=== PATIENT | male | born 1945 | race Caucasian/White ===

== ENCOUNTER 2018-09-05 06:42 | Day surgery (SDC) | payer MEDICARE, SELFPAY ==
[2018-09-05] MEDS: PROPARACAINE 0.5% OPHTH SOL 2 DROPS EYE-OP (10:50)
[2018-09-05 10:54] VITALS: BP 156/79; PULSE 57; RESP 16; TEMP 36.4; O2SAT 100
[2018-09-05] MEDS: CATARACT EYE COMPOUND (10 DROPS/SYRINGE) 3 DROPS EYE-OP (10:56)
[2018-09-05 10:57] VITALS: BMI 35.8
--- NOTE | 2018-09-05 12:29 | PM.PREOP ---
Pre-operative Note Interval Note History & Physical reviewed/Exam performed by Physician: No Changes to H&P: No
--- NOTE | 2018-09-05 12:29 | PM.OP.1 ---
Operative Date/Time/Diagnoses Pre-op diagnosis: Nuclear Cataract Left eye Post-op diagnosis: same Procedure & Clinicians Surgeon: Demian Fowler Anesthesia Type: MAC +/- and Sedation Operative Notes Procedure in detail: Patient brought to the operating suite. Tetracaine drops placed in the left eye. Patient was prepped and draped in sterile manner. Wire lid speculum was placed in the eye. Betadine drops were placed on the eye. This was irrigated. Lidocaine jelly was placed on the eye. A paracentesis port was created with a side-port blade. 0.1 mL 1% preservative free lidocaine was injected into the anterior chamber. The anterior chamber was deepened with viscoelastic. 2.6 mm keratome was used to create a temporal clear corneal incision. Cystotome and Utrata forceps were used to create continuous tear capsulorrhexis. Balanced salt solution was used to hydro dissect the nucleus. The phacoemulsification handpiece was inserted and the nucleus was removed using the stop and chop technique. The irrigation aspiration handpiece was inserted and the remaining cortex was removed. Anterior chamber was deepened with viscoelastic. An Elliott ZCB00 intraocular lens with a power of 25.5 was injected into the capsular bag. Irrigation aspiration handpiece was inserted and the remaining viscoelastic was removed. Incision was hydrated with balanced salt solution and found to be leak free with pressure with Weck-Jasmina sponges. 0.1 mL Vigamox injected anterior chamber. 0.3 mL Kenalog 10 mg was injected subconjunctivally. Lid speculum was removed. The patient left the operating room in excellent condition. Complications: none Condition: stable Disposition: same day surgery
[2018-09-05] MEDS: PHENYLEPHRINE/LIDOCAINE VIAL (OR) 0.2 ML EYE-OP (12:42)
[2018-09-05] MEDS: TRIAMCINOLONE 50 MG/5 ML VIAL INJ (12:43)
[2018-09-05] MEDS: MOXIFLOXACIN OPHTH DROPS 3 ML BOTTLE 2 DROPS INJ (12:43)
[2018-09-05] MEDS: TETRACAINE 0.5% OPHTH DROPS 4 ML 2 DROPS EYE-OP (12:44)
[2018-09-05] MEDS: LIDOCAINE JELLY 2% 5 ML 1 APPLIC TOP (12:44)
[2018-09-05] MEDS: BALANCED SALT IRRIG SOLN NO.2 500 ML, EPINEPHrine 1 MG IRR (12:44)
[2018-09-05] MEDS: CHONDROIDTIN/SOD HYALURONATE 1.05 ML SYRINGE INTRAOCULA (12:44)
[2018-09-05 12:55] VITALS: BP 137/69; PULSE 52; RESP 16; TEMP 36.3; O2SAT 99
== END 2018-09-05 13:10 | disposition home or self-care (01) ==
LOC: OR 06:45
PROVIDERS: Family Provider Internal Medicine; PCP Internal Medicine; Visit Provider Ophthalmology
DX: H25.12 Age-related nuclear cataract, left eye (principal); I48.91 Unspecified atrial fibrillation; I10 Essential (primary) hypertension
CPT/HCPCS: J0171; J2250; J3010; J3301

== ENCOUNTER 2018-09-19 09:15 | Day surgery (SDC) | payer MEDICARE, SELFPAY ==
[2018-09-19 09:39] VITALS: BP 141/71; PULSE 47; RESP 16; TEMP 36.5; O2SAT 100; BMI 35.9
[2018-09-19] MEDS: PROPARACAINE 0.5% OPHTH SOL 2 DROPS EYE-OP (09:50)
[2018-09-19] MEDS: CATARACT EYE COMPOUND (10 DROPS/SYRINGE) 3 DROPS EYE-OP (09:56)
--- NOTE | 2018-09-19 10:36 | PM.PREOP ---
Pre-operative Note Interval Note History & Physical reviewed/Exam performed by Physician: No Changes to H&P: No
--- NOTE | 2018-09-19 10:36 | PM.OP.1 ---
Operative Date/Time/Diagnoses Pre-op diagnosis: Nuclear cataract right eye Procedure & Clinicians Procedure: Cataract Surgery Same procedure as scheduled: Yes Surgeon: Demian Fowler Anesthesia Type: MAC +/- and Sedation Operative Notes Procedure in detail: Patient brought to the operating suite. Tetracaine drops placed in the right eye. Patient was prepped and draped in sterile manner. Wire lid speculum was placed in the eye. Betadine drops were placed on the eye. This was irrigated. Lidocaine jelly was placed on the eye. A paracentesis port was created with a side-port blade. 0.1 mL 1% preservative free lidocaine was injected into the anterior chamber. The anterior chamber was deepened with viscoelastic. 2.6 mm keratome was used to create a temporal clear corneal incision. Cystotome and Utrata forceps were used to create continuous tear capsulorrhexis. Balanced salt solution was used to hydro dissect the nucleus. The phacoemulsification handpiece was inserted and the nucleus was removed using the stop and chop technique. The irrigation aspiration handpiece was inserted and the remaining cortex was removed. Anterior chamber was deepened with viscoelastic. An Elliott ZCB00 intraocular lens with a power of 23.0 was injected into the capsular bag. Irrigation aspiration handpiece was inserted and the remaining viscoelastic was removed. Incision was hydrated with balanced salt solution and found to be leak free with pressure with Weck-Jasmina sponges. 0.1 mL Vigamox injected anterior chamber. 0.3 mL Kenalog 10 mg was injected subconjunctivally. Lid speculum was removed. The patient left the operating room in excellent condition. Complications: none Condition: stable Disposition: same day surgery
[2018-09-19] MEDS: PHENYLEPHRINE/LIDOCAINE VIAL (OR) 0.2 ML EYE-OP (10:48)
[2018-09-19] MEDS: CHONDROIDTIN/SOD HYALURONATE 1.05 ML SYRINGE INTRAOCULA (10:49)
[2018-09-19] MEDS: LIDOCAINE JELLY 2% 5 ML 1 APPLIC TOP (10:49)
[2018-09-19] MEDS: MOXIFLOXACIN OPHTH DROPS 3 ML BOTTLE 2 DROPS INJ (10:49)
[2018-09-19] MEDS: TRIAMCINOLONE 50 MG/5 ML VIAL INJ (10:49)
[2018-09-19] MEDS: TETRACAINE 0.5% OPHTH DROPS 4 ML 2 DROPS EYE-OP (10:50)
[2018-09-19] MEDS: BALANCED SALT IRRIG SOLN NO.2 500 ML, EPINEPHrine 1 MG IRR (10:50)
[2018-09-19 10:57] VITALS: BP 135/72; PULSE 50; RESP 16; TEMP 36.4; O2SAT 98
== END 2018-09-19 11:11 ==
LOC: OR 09:16
PROVIDERS: PCP Internal Medicine; Visit Provider Ophthalmology
DX: H25.11 Age-related nuclear cataract, right eye (principal); I48.91 Unspecified atrial fibrillation; I10 Essential (primary) hypertension
CPT/HCPCS: J0171; J2250; J3010; J3301

== ENCOUNTER → 2018-10-27 08:48 | Outpatient (CLI) | payer MEDICARE, SELFPAY ==
[2018-10-27 10:27] LABS: Alanine Aminotransferase 59 IU/L (21-72); Albumin 4.2 g/dL (3.5-5.0); Albumin Globulin Ratio 1.2 (1.0-2.8); Alkaline Phosphatase 55 U/L (38-126); Aspartate Aminotransferase 44 IU/L (17-59); BUN Creatinine Ratio 18.8 (6-22); Bilirubin Total 1.6 mg/dL (0.2-1.3); Blood Urea Nitrogen 15 mg/dL (9-20); Calcium 9.1 mg/dL (8.4-10.2); Carbon Dioxide 27 mmol/L (22-32); Chloride 105 mmol/L (98-107); Cholesterol 146 mg/dL (140-199); Estimated Glomerular Filt Rate > 60.0 mL/min (>60); Globulin 3.4 g/dL (1.7-4.1); Glucose 115 mg/dL (80-110); HDL Cholesterol 28 mg/dL (40-60); HEMOLYSIS < 15 (0-50); LDL Cholesterol Calculated 82 mg/dL (<100); Potassium 4.7 mmol/L (3.4-5.1); Sodium 141 mmol/L (137-145); Total Protein 7.6 g/dL (6.3-8.2); Triglycerides 182 mg/dL (35-150)
[2018-10-27 10:57] LABS: Prostate Specific Antigen Scrn 2.04 ng/mL (0.1-4.0)
== END ==
PROVIDERS: PCP Internal Medicine; Visit Provider Internal Medicine
DX: E78.5 Hyperlipidemia, unspecified (principal); I10 Essential (primary) hypertension; I48.0 Paroxysmal atrial fibrillation; Z12.5 Encounter for screening for malignant neoplasm of prostate
CPT/HCPCS: 36415; 80053; 80061; G0103

== ENCOUNTER → 2019-03-22 09:51 | Outpatient (CLI) | payer MEDICARE, SELFPAY ==
[2019-03-22 10:17] LABS: Add Manual Diff / Slide Review NO; Basophils Absolute Auto 0 /uL (0-100); Basophils Percent Auto 0.2 % (0-2); Eosinophils Absolute Auto 100 /uL (0-450); Eosinophils Percent Auto 0.9 % (2-4); Hematocrit 42.4 % (41-53); Hemoglobin 14.6 g/dL (13.5-17.5); Lymphocytes Absolute Auto 3700 /uL (1100-4500); Lymphocytes Percent Auto 37.1 % (25-40); Mean Corpuscular HGB Conc 34.3 % (30-36); Mean Corpuscular Hemoglobin 32.4 PG (26-34); Mean Corpuscular Volume 94.3 fL (80-100); Monocytes Absolute Auto 600 /uL (0-900); Monocytes Percent Auto 5.9 % (3-14); Neutrophils Absolute Auto 5500 /uL (1500-7000); Neutrophils Percent Auto 55.9 % (50-75); Platelet Count 202 X10^3/uL (150-400); Red Cell Distribution Width 13.9 % (11.6-14.8); White Blood Cell Count 9.9 X10^3/uL (4.5-11.0)
[2019-03-22 10:49] LABS: Alanine Aminotransferase 58 IU/L (21-72); Albumin 4.3 g/dL (3.5-5.0); Albumin Globulin Ratio 1.2 (1.0-2.8); Alkaline Phosphatase 51 U/L (38-126); Aspartate Aminotransferase 57 IU/L (17-59); BUN Creatinine Ratio 18.8 (6-22); Bilirubin Total 2.3 mg/dL (0.2-1.3); Blood Urea Nitrogen 15 mg/dL (9-20); Calcium 9.3 mg/dL (8.4-10.2); Carbon Dioxide 28 mmol/L (22-32); Chloride 104 mmol/L (98-107); Estimated Glomerular Filt Rate > 60.0 mL/min (>60); Globulin 3.7 g/dL (1.7-4.1); Glucose 106 mg/dL (80-110); HEMOLYSIS < 15 (0-50); Potassium 4.4 mmol/L (3.4-5.1); Sodium 139 mmol/L (137-145)
== END ==
PROVIDERS: PCP Internal Medicine; Visit Provider Nurse Practitioner Family
DX: I48.0 Paroxysmal atrial fibrillation (principal)
CPT/HCPCS: 36415; 80053; 83735; 85025

== ENCOUNTER → 2019-04-11 14:25 | Outpatient (CLI) | payer MEDICARE, SELFPAY ==
--- NOTE | 2019-04-11 14:26 | DI.ECHO.S_ITS ---
[facility]---------[facility] +---------+ : : [address] : : : : [id number] : : : : Phone: [phone] +---------+ Echocardiogram Report + + :Name: NIKKI WILKINSON V Study Date: 04/11/2019 Height: 72 in : :[facility] Exam Location: [facility] Weight: 261 lb : : Gender: Male BSA: 2.4 m2 : :: 1945 Age: 73 yrs BP: 130/84 mmHg: :Reason For Study: AFIB : : Performed By: Rodolfo Campbell : :Referring: WEST JONES : + + Interpretation Summary The ejection fraction is estimated to be 60-65%. Both atria are moderately dilated. The aortic valve is mildly calcified. There is no hemodynamically significant valvular aortic stenosis. Procedure: A two-dimensional transthoracic echocardiogram with color flow and Doppler was performed. The study quality was technically adequate. Comparison is made with the echocardiogram of 03/04/17. The patient was in atrial fibrillation with controlled ventricular rate during the exam. The patient had a heart rate of 68-82 beats per minute. Left Ventricle: The left ventricle is normal in size. There is normal left ventricular wall thickness. The ejection fraction is estimated to be 60-65%. There are no focal wall motion abnormalities. Right Ventricle: The right ventricle is mildly dilated. The right ventricular systolic function is normal. Atria: Both atria are moderately dilated. The interatrial septum is intact with no evidence for an atrial septal defect. Mitral Valve: The mitral valve is normal in structure and function. There is trace mitral regurgitation. Aortic Valve: The aortic valve is bicuspid. The aortic valve is mildly calcified. There is no hemodynamically significant valvular aortic stenosis. The aortic valve mean gradient is 13 mmHg. There has been no significant change since the previous study. There is trace aortic regurgitation. Tricuspid Valve: The tricuspid valve is normal in structure and function. There is trace tricuspid regurgitation. The right ventricular systolic pressure is estimated to be at least 25 mmHg based on an estimated right atrial pressure of 3 mm Hg. Pulmonic Valve: The pulmonic valve is normal in structure and function. There is trace pulmonic regurgitation. Great Vessels: The aortic root is normal size. The ascending aorta is mildly enlarged. The aortic arch is mildly enlarged. The pulmonary artery is normal size. The IVC is of normal diameter and collapses greater than 50% with a sniff. This suggests a low right atrial pressure of 3 mm Hg. Pericardium/ Pleura There is no pericardial effusion. There is no pleural effusion. MMode/2D Measurements & Calculations LVIDd: 4.7 cm LVOT diam: 2.3 cm LVIDs: 2.2 cm Ao root diam: 4.0 cm FS: 52.5 % Aortic Jxn: 2.9 cm EPSS: 0.40 cm asc Aorta Diam: 4.0 cm IVSd: 0.97 cm Ao Arch Diam (Prox Trans): 3.3 cm LVPWd: 0.97 cm LV gardner. diameter/BSA (cm/m^2): 2.0 LV sys. diameter/BSA (cm/m^2): 0.94 LA dimension: 5.2 cm RA long axis: 6.3 cm LA A2 area: 29.4 cm2 RA area: 28.2 cm2 LA A4 area: 26.8 cm2 RA vol: 107.4 ml LA length (vol): 6.2 cm RA : 45.0 ml/m2 LA vol: 108.0 ml IVC diam: 1.1 cm LA vol index: 45.3 ml/m2 RVD1 (basal): 5.3 cm RVD2 (mid): 5.1 cm PATO (plan): 2.1 cm2 Doppler Measurements & Calculations Ao V2 max: 239.8 cm/sec LVOT Max Oliver: 122.4 cm/sec Ao V2 mean: 175.0 cm/sec LV V1 max P.0 mmHg Ao max P.1 mmHg LV V1 VTI: 26.2 cm Ao mean P.4 mmHg PATO(I,D): 2.0 cm2 Ao V2 VTI: 52.7 cm PATO(V,D): 2.1 cm2 sev ratio: 0.50 PATO indexed to BSA (cm^2/m^2): 0.85 MV E max oliver: 106.9 cm/sec TR max oliver: 236.2 cm/sec MV A max oliver: 2.4 cm/sec TR max P.3 mmHg MV E/A: 44.6 PA V2 max: 110.5 cm/sec Med Peak E' Oliver: 6.2 cm/sec PA V2 mean: 76.1 cm/sec E/E' med: 17.2 PA mean P.6 mmHg Lat Peak E' Oliver: 11.2 cm/sec PA pr(Accel): 36.6 mmHg E/E' lat: 9.5 PA Accel Time: 0.10 sec E/e' average: 13.3 MV dec time: 0.17 sec SV(LVOT): 106.3 ml Reading Physician:04:40 PM
== END ==
PROVIDERS: Family Provider Internal Medicine; PCP Internal Medicine; Visit Provider Nurse Practitioner Family
DX: I48.0 Paroxysmal atrial fibrillation (principal); Q23.1 Congenital insufficiency of aortic valve; I77.89 Other specified disorders of arteries and arterioles
CPT/HCPCS: 93306

== ENCOUNTER → 2019-08-24 12:36 | Outpatient (CLI) | payer MEDICARE, SELFPAY ==
--- NOTE | 2019-08-24 | DI.US.S_ITS ---
PROCEDURE: US ABDOMEN COMPLETE INDICATIONS: LONGSTANDING PERSISTENT A-FIB, HTN TECHNIQUE: Real-time scanning was performed of the abdominal and retroperitoneal organs, with image documentation. COMPARISON: None. FINDINGS: Liver: Liver is normal in size and mildly diffusely hyperechoic in echotexture. Gallbladder: The gallbladder is normal without stones or sludge. Normal wall thickness and 1.6 mm. Biliary ducts: Intrahepatic bile ducts are non-dilated. Extrahepatic bile duct caliber measures 7 mm. Normal is 6-7 mm or less in diameter, or 10 mm or less post-cholecystectomy. Pancreas: Pancreas is not visible secondary to bowel gas. Spleen: Spleen is minimally enlarged measuring about 12.9 cm in length. No perisplenic ascites. Kidneys: Kidneys are normal in size and echotexture. Right kidney measures 12.9 cm long; left kidney measures 15.0 cm long. No hydronephrosis or nephrolithiasis. No solid masses. There is a parapelvic cyst measuring 2.4 cm. 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 Aorta: Visualized aorta is normal in caliber at less than 3 cm. Iliacs: Proximal common iliac arteries are normal in caliber at less than 2.5 cm. IVC: Intrahepatic inferior vena cava is patent. Miscellaneous: No free abdominal fluid. IMPRESSION: 1. Mild hepatic hyperechogenicity suggesting steatosis or other intrinsic liver disease. 2. Normal gallbladder. 3. Nonvisualization of the pancreas. 4. 2.4 cm parapelvic left renal cyst. Dictated by: Janel Peralta M.D. on 08/24/2019 at 15:49 Approved by: Janel Peralta M.D. on 08/24/2019 at 15:52
== END ==
PROVIDERS: Family Provider Internal Medicine; PCP Internal Medicine; Visit Provider Nurse Practitioner
DX: N28.1 Cyst of kidney, acquired (principal); I48.11 Longstanding persistent atrial fibrillation; I10 Essential (primary) hypertension
CPT/HCPCS: 76700

== ENCOUNTER → 2019-08-27 09:03 | Outpatient (CLI) | payer MEDICARE, SELFPAY ==
[2019-08-27 10:10] LABS: BUN Creatinine Ratio 18.9 (6-22); Blood Urea Nitrogen 17 mg/dL (9-20); Calcium 9.5 mg/dL (8.4-10.2); Carbon Dioxide 25 mmol/L (22-32); Chloride 103 mmol/L (98-107); Cholesterol 165 mg/dL (140-199); Estimated Glomerular Filt Rate > 60.0 mL/min (>60); Glucose 143 mg/dL (80-110); HDL Cholesterol 28 mg/dL (40-60); HEMOLYSIS < 15 (0-50); LDL Cholesterol Calculated 103 mg/dL (<100); Potassium 4.3 mmol/L (3.4-5.1); Sodium 139 mmol/L (137-145); Triglycerides 168 mg/dL (35-150)
== END ==
PROVIDERS: Family Provider Internal Medicine; PCP Internal Medicine; Referring Provider Nurse Practitioner; Visit Provider Nurse Practitioner
DX: I48.11 Longstanding persistent atrial fibrillation (principal); E78.5 Hyperlipidemia, unspecified; I10 Essential (primary) hypertension
CPT/HCPCS: 36415; 80048; 80061

== ENCOUNTER → 2019-09-13 14:28 | Outpatient (CLI) | payer MEDICARE, SELFPAY ==
--- NOTE | 2019-09-15 04:09 | DI.NM.S_ITS ---
DATE OF SERVICE: 09/13/2019 PROCEDURE: Exercise perfusion study. INDICATION: Atrial fibrillation, hypertension. RADIOPHARMACEUTICAL: 25.7 millicurie technetium-99m Myoview IV was injected at stress and 26.6 millicurie technetium-99m Myoview IV was injected at rest. FINDINGS: CARDIAC STRESS:: The patient underwent exercise perfusion study under the supervision of an attending staff. He walked on Venkata protocol for 6 minutes 01 seconds and achieved about 100 percent of target heart rate with normal blood pressure response. Achieved 7 METS of workload. No significant symptoms. Baseline EKG revealed sinus rhythm with repolarization changes. During stress, there were significant artifacts, which made interpretation of EKG difficult. However, in recovery, there was some nonspecific upsloping ST depression in inferolateral leads. No significant sustained arrhythmias seen. RAW DATA:: There is increased subdiaphragmatic activity. The patient's weight is 264 pounds. GATED STUDY:: Resting LV ejection fraction is 72 percent and stress LV ejection fraction is 74 percent. Resting end-diastolic volume 139 mL. TID ratio is 0.90, which is within normal limits. Lung-heart ratio 0.76, which is abnormal, suggestive of elevated LV filling pressure. MYOCARDIAL PERFUSION SCAN:: Stress supine, resting supine and stress prone images were compared to each other. The stress and resting supine images revealed small to moderate size mildly decreased perfusion of inferior wall extending into the inferior apex, which got significantly improved during prone images suggestive of diaphragmatic tissue attenuation artifact. During prone images, there was mildly decreased perfusion of mid anterior wall, which was not seen during stress supine and resting supine images. CONCLUSION: 1. I will call this study likely a normal myocardial perfusion study with evidence of diaphragmatic tissue attenuation artifact, which got resolved during prone images. 2. This overall LV function is preserved. Functional aerobic impairment -3 percent. 3. As far as perfusion scan is concerned, this is a low risk myocardial perfusion scan. Initial rhythm was sinus. No obvious atrial fibrillation seen during stress. Marco A River - BROOKS/roseanne/mode doc#: [id number]/job#: [id number] dd: 09/14/2019 17:04:00 dt: 09/15/2019 03:59:00 DICTATING MD/COPIES TO: Anne Marie Nava MD COPIES MNE: MARLENA;
== END ==
PROVIDERS: Family Provider Internal Medicine; PCP Internal Medicine; Referring Provider Nurse Practitioner; Visit Provider Nurse Practitioner
DX: I48.11 Longstanding persistent atrial fibrillation (principal); I10 Essential (primary) hypertension
CPT/HCPCS: 78452; 93017; A9502

== ENCOUNTER → 2019-11-21 09:51 | Outpatient (CLI) | payer MEDICARE, SELFPAY ==
[2019-11-21 11:32] LABS: Hemoglobin A1C% w Est Avg Glu 6.2 % (4.0-6.0)
[2019-11-21 11:57] LABS: Alanine Aminotransferase 65 IU/L (<50); Albumin 4.3 g/dL (3.5-5.0); Albumin Globulin Ratio 1.1 (1.0-2.8); Alkaline Phosphatase 66 U/L (38-126); Aspartate Aminotransferase 60 IU/L (17-59); Bilirubin Total 1.6 mg/dL (0.2-1.3); Blood Urea Nitrogen 15 mg/dL (9-20); Calcium 9.3 mg/dL (8.4-10.2); Carbon Dioxide 26 mmol/L (22-32); Chloride 103 mmol/L (98-107); Estimated Glomerular Filt Rate > 60.0 mL/min (>60); Globulin 3.9 g/dL (1.7-4.1); Glucose 123 mg/dL (80-110); HEMOLYSIS < 15 (0-50); Potassium 4.5 mmol/L (3.4-5.1); Sodium 138 mmol/L (137-145); Total Protein 8.2 g/dL (6.3-8.2)
[2019-11-21 12:17] LABS: Cholesterol 133 mg/dL (140-199); HDL Cholesterol 30 mg/dL (40-60); LDL Cholesterol Calculated 73 mg/dL (<100); Triglycerides 149 mg/dL (35-150)
== END ==
PROVIDERS: Family Provider Internal Medicine; PCP Internal Medicine; Referring Provider Nurse Practitioner; Visit Provider Nurse Practitioner
DX: E66.9 Obesity, unspecified (principal); R73.09 Other abnormal glucose; I48.11 Longstanding persistent atrial fibrillation; Z98.890 Other specified postprocedural states; I10 Essential (primary) hypertension; G47.33 Obstructive sleep apnea (adult) (pediatric); E78.5 Hyperlipidemia, unspecified
CPT/HCPCS: 36415; 80053; 80061; 83036

== ENCOUNTER → 2020-08-19 10:28 | Outpatient (CLI) | payer MEDICARE, SELFPAY ==
[2020-08-19 11:44] LABS: BUN Creatinine Ratio 22.4 (6-22); Blood Urea Nitrogen 19 mg/dL (9-20); Calcium 9.3 mg/dL (8.4-10.2); Carbon Dioxide 29 mmol/L (22-32); Chloride 105 mmol/L (98-107); Cholesterol 137 mg/dL (140-199); Estimated Glomerular Filt Rate > 60.0 mL/min (>60); Glucose 131 mg/dL (80-110); HDL Cholesterol 32 mg/dL (40-60); HEMOLYSIS < 15 (0-50); LDL Cholesterol Calculated 78 mg/dL (<100); Potassium 4.2 mmol/L (3.4-5.1); Sodium 138 mmol/L (137-145); Triglycerides 134 mg/dL (35-150)
== END ==
PROVIDERS: Family Provider Internal Medicine; PCP Internal Medicine; Referring Provider Internal Medicine Cardiovascular Disease; Visit Provider Internal Medicine Cardiovascular Disease
DX: I10 Essential (primary) hypertension (principal); E78.5 Hyperlipidemia, unspecified
CPT/HCPCS: 36415; 80048; 80061

== ENCOUNTER → 2021-04-02 09:13 | Outpatient (CLI) | payer MEDICARE, SELFPAY ==
[2021-04-02 10:59] LABS: BUN Creatinine Ratio 18.5 (6-22); Blood Urea Nitrogen 15 mg/dL (9-20); Calcium 9.4 mg/dL (8.4-10.2); Carbon Dioxide 26 mmol/L (22-32); Chloride 105 mmol/L (98-107); Cholesterol 139 mg/dL (140-199); Estimated Glomerular Filt Rate > 60.0 mL/min (>60); Glucose 123 mg/dL (80-110); HDL Cholesterol 33 mg/dL (40-60); HEMOLYSIS < 15 (0-50); LDL Cholesterol Calculated 69 mg/dL (<100); Potassium 4.3 mmol/L (3.4-5.1); Sodium 140 mmol/L (137-145); Triglycerides 184 mg/dL (35-150)
== END ==
PROVIDERS: Family Provider Internal Medicine; PCP Internal Medicine; Referring Provider Internal Medicine Cardiovascular Disease; Visit Provider Internal Medicine Cardiovascular Disease
DX: E78.5 Hyperlipidemia, unspecified (principal); I10 Essential (primary) hypertension; I48.91 Unspecified atrial fibrillation
CPT/HCPCS: 36415; 80048; 80061

== ENCOUNTER → 2021-05-18 07:59 | Outpatient (CLI) | payer MEDICARE, SELFPAY ==
--- NOTE | 2021-05-18 | DI.ECHO.S_ITS ---
[facility]---------+ [facility] +---------+ : : [address] : : : : [id number] : : : : Phone: [phone] +---------+ Echocardiogram Report + + :Name: NIKKI WILKINSON V Study Date: 05/18/2021 Height: 72.5 in: :[facility] ReadingLocation: Weight: 254 lb : : Gender: Male BSA: 2.4 m2 : :: 1945 Age: 75 yrs BP: 145/83 mmHg: :Reason For Study: CONGENITAL INSUFFICIENCY OF AORTIC VALVE : :Ordering Physician: DALLAS, : :JAMIE Performed By: Barbara Bellamy : :Referring: VIMAL VASQUEZ R : + + Interpretation Summary The left ventricle is normal in size and wall thickness. The ejection fraction is estimated to be 60-65%. There has been no significant change in LVEF since the previous exam. The right ventricle is mildly dilated. The right ventricular systolic function is normal. The aortic valve is bicuspid. The aortic valve is mildly calcified. The peak aortic velocity is 2.8 m/sec. The aortic valve mean gradient is 17 mmHg. The calculated aortic valve area is 1.7 cm2. The peak aortic velocity on the previous exam was 2.4 m/sec. Mild aortic stenosis. The ascending aorta is mildly enlarged. 4.0 cm in diameter. Unchanged from the previous study. The aortic root is mildly dilated. 4.3 cm in diameter. Previously it was 4.0 cm. Procedure: A two-dimensional transthoracic echocardiogram with color flow and Doppler was performed. The study quality was technically adequate. Comparison is made with the echocardiogram of 04/11/2019. The patient was in sinus bradycardia with heart rates between 48-54 bpm during the exam. Left Ventricle: The left ventricle is normal in size and wall thickness. There is no thrombus. The ejection fraction is estimated to be 60-65%. There has been no significant change since the previous exam. There are no focal wall motion abnormalities. MV E/A: 1.1 Med Peak E' Oliver: 6.1 cm/sec E/E' med: 14.2. Right Ventricle: The right ventricle is mildly dilated. There has been no significant change since the previous study. The right ventricular systolic function is normal. Atria: The left atrium is moderately dilated. The left atrium has remained unchanged in size since the prior echo exam. The right atrium is mildly dilated. There is no Doppler evidence for an interatrial shunt. Mitral Valve: The mitral valve leaflets appear mildly thickened, but open well. The mitral valve leaflets are mildly calcified. There is mild mitral annular calcification. There is trace mitral regurgitation. Aortic Valve: The aortic valve is bicuspid. The aortic valve is mildly calcified. There is mild aortic stenosis. The peak aortic velocity is 2.8 m/sec. The aortic valve mean gradient is 17 mmHg. The calculated aortic valve area is 1.7 cm2. The peak aortic velocity on the previous exam was 2.4 m/sec. There is trace aortic regurgitation. Tricuspid Valve: The tricuspid valve is normal in structure and function. There is trace tricuspid regurgitation. Pulmonary artery pressures cannot be estimated because of the lack of a measurable TR jet velocity but the IVC suggests a CVP of around 3 mmHg. Pulmonic Valve: The pulmonic valve is not well seen, but is grossly normal. There is mild pulmonic regurgitation. Great Vessels: The aortic root is mildly dilated. The ascending aorta is mildly enlarged. The aortic arch is at the upper limits of normal in size. The IVC is of normal diameter and collapses greater than 50% with a sniff. This suggests a low right atrial pressure of 3 mm Hg. Pericardium/ Pleura There is no pericardial effusion. There is no pleural effusion. MMode/2D Measurements & Calculations LVIDd: 5.1 cm LVOT diam: 2.3 cm LVIDs: 3.4 cm Ao root diam: 4.3 cm FS: 33.4 % asc Aorta Diam: 4.0 cm IVSd: 0.97 cm Ao Arch Diam (Prox Trans): 3.4 cm LVPWd: 1.1 cm LV gardner. diameter/BSA (cm/m^2): 2.2 LV sys. diameter/BSA (cm/m^2): 1.4 LA A2 area: 29.5 cm2 RA long axis: 6.2 cm LA A4 area: 24.4 cm2 RA area: 23.6 cm2 LA length (vol): 6.2 cm RA vol: 76.5 ml LA vol: 97.9 ml RA : 32.3 ml/m2 LA vol index: 41.3 ml/m2 IVC diam: 1.8 cm RVD1 (basal): 4.4 cm TAPSE: 2.5 cm Doppler Measurements & Calculations Ao V2 max: 281.0 cm/sec LVOT Max Oliver: 118.7 cm/sec Ao V2 mean: 188.5 cm/sec LV V1 max P.6 mmHg Ao max P.6 mmHg LV V1 VTI: 33.0 cm Ao mean P.6 mmHg PATO(I,D): 1.9 cm2 Ao V2 VTI: 70.2 cm PATO(V,D): 1.7 cm2 sev ratio: 0.47 PATO indexed to BSA (cm^2/m^2): 0.79 MV E max oliver: 87.4 cm/sec PA V2 max: 125.2 cm/sec MV A max oliver: 78.3 cm/sec PA V2 mean: 86.9 cm/sec MV E/A: 1.1 PA mean P.4 mmHg Med Peak E' Oliver: 6.1 cm/sec PA pr(Accel): 29.3 mmHg E/E' med: 14.2 Lat Peak E' Oliver: 9.6 cm/sec E/E' lat: 9.1 E/e' average: 11.7 MV dec time: 0.27 sec SV(LVOT): 131.9 ml Reading Physician:05:37 PM
== END ==
PROVIDERS: Family Provider Internal Medicine; PCP Internal Medicine; Referring Provider Internal Medicine Cardiovascular Disease; Visit Provider Internal Medicine Cardiovascular Disease
DX: Q23.1 Congenital insufficiency of aortic valve (principal); I77.810 Thoracic aortic ectasia
CPT/HCPCS: 93306

== ENCOUNTER → 2021-06-24 09:14 | Outpatient (CLI) | payer MEDICARE, SELFPAY ==
[2021-06-24 12:08] LABS: BUN Creatinine Ratio 17.2 (6-22); Blood Urea Nitrogen 15 mg/dL (9-20); Calcium 9.3 mg/dL (8.4-10.2); Carbon Dioxide 25 mmol/L (22-32); Chloride 104 mmol/L (98-107); Cholesterol 153 mg/dL (140-199); Estimated Glomerular Filt Rate > 60.0 mL/min (>60); Glucose 123 mg/dL (80-110); HDL Cholesterol 29 mg/dL (40-60); HEMOLYSIS < 15 (0-50); LDL Cholesterol Calculated 89 mg/dL (<100); Potassium 4.1 mmol/L (3.4-5.1); Sodium 139 mmol/L (137-145); Triglycerides 175 mg/dL (35-150)
== END ==
PROVIDERS: Family Provider Internal Medicine; PCP Internal Medicine; Referring Provider Internal Medicine Cardiovascular Disease; Visit Provider Internal Medicine Cardiovascular Disease
DX: E78.5 Hyperlipidemia, unspecified (principal)
CPT/HCPCS: 36415; 80048; 80061

== ENCOUNTER → 2022-04-12 11:54 | Outpatient (CLI) | payer MEDICARE, SELFPAY ==
--- NOTE | 2022-04-12 11:55 | DI.ECHO.S_ITS ---
[facility] +---------+ [facility] +---------+ : : [address] : : : : [id number] : : : : Phone: [phone] +---------+ Echocardiogram Report + + :Name: NIKKI WILKINSON V Study Date: 04/12/2022 Height: 72 in : :[facility] ReadingLocation: Weight: 254 lb : : Gender: Male BSA: 2.4 m2 : :: 1945 Age: 76 yrs BP: 125/84 mmHg: :Reason For Study: Aortic, Biscupid Valve : :Ordering Physician: DALLAS, : :JAMIE Performed By: Juan Francisco Nur : :Referring: JAMIE HAYNES : + + Interpretation Summary The left ventricle is normal in size. The left ventricle is hyperdynamic. The ejection fraction is estimated to be 75-80%. There is no echo evidence for significant left ventricular outflow tract obstruction. LV function is hyperdynamic in comparison to previous study. The right ventricle is normal size. The right ventricle is hyperdynamic. The aortic valve is bicuspid. The aortic valve is mildly calcified. The peak aortic velocity on the previous exam was 2.8 m/sec. There is no hemodynamically significant valvular aortic stenosis. IVC appears to be small and collapsing more than 50% in inspiration suggestive of right atrial pressure less than 3 mmHg. The ascending aorta is mildly enlarged. 3.7 cm in diameter. Previously 4 cm in diameter. Aortic root 4.0 cm in diameter. Previously 4.3 cm. The patient was in atrial fibrillation with heart rates between 99-108 bpm during the exam. Previously patient has sinus bradycardia. BP: 125/84 mmHg Procedure: A two-dimensional transthoracic echocardiogram with color flow and Doppler was performed. The study quality was technically adequate. Comparison is made with the echocardiogram of 05/18/2021. The patient was in atrial fibrillation with heart rates between 99-108 bpm during the exam. Left Ventricle: The left ventricle is normal in size. Left ventricular wall thickness is at the upper limits of normal. There is no echo evidence for significant left ventricular outflow tract obstruction. There is no thrombus. The left ventricle is hyperdynamic. The ejection fraction is estimated to be 75-80%. There are no focal wall motion abnormalities. Right Ventricle: The right ventricle is normal size. The right ventricle is hyperdynamic. Atria: Both atria are normal in size. The left atrium has mildly decreased in size since the prior echo exam. The interatrial septum grossly appears intact with no obvious evidence for an atrial septal defect. Mitral Valve: There is mild mitral annular calcification. The mitral valve leaflets are mildly calcified. There is no mitral regurgitation noted. Aortic Valve: The aortic valve is bicuspid. The aortic valve is mildly calcified. There is no hemodynamically significant valvular aortic stenosis. The calculated aortic valve area is 2.2 cm2. The peak aortic velocity is 2.8 m/sec. The aortic valve mean gradient is 17 mmHg. The peak aortic velocity on the previous exam was 2.8 m/sec. No aortic regurgitation is present. Tricuspid Valve: The tricuspid valve is normal in structure and function. Pulmonary artery pressures cannot be estimated because of the lack of a measurable TR jet velocity. There is trace tricuspid regurgitation. Pulmonic Valve: The pulmonic valve is not well seen, but is grossly normal. There is mild pulmonic regurgitation. Great Vessels: The aortic root is normal size. The ascending aorta is mildly enlarged. IVC appears to be small and collapsing more than 50% in inspiration suggestive of right atrial pressure less than 3 mmHg. Pericardium/ Pleura There is no pericardial effusion. There is no pleural effusion. MMode/2D Measurements & Calculations LVIDd: 4.3 cm LVOT diam: 2.3 cm LVIDs: 2.7 cm Ao root diam: 4.0 cm FS: 37.2 % asc Aorta Diam: 3.7 cm IVSd: 1.1 cm LVPWd: 1.1 cm LV gardner. diameter/BSA (cm/m^2): 1.8 LV sys. diameter/BSA (cm/m^2): 1.1 LA dimension: 3.9 cm RA long axis: 5.4 cm LA A2 area: 22.2 cm2 RA area: 19.4 cm2 LA A4 area: 23.1 cm2 RA vol: 59.9 ml LA length (vol): 6.4 cm RA : 25.4 ml/m2 LA vol: 68.1 ml LA vol index: 28.9 ml/m2 TAPSE_phl: 2.0 cm Doppler Measurements & Calculations Ao V2 max: 281.0 cm/sec LVOT Max Oliver: 133.0 cm/sec Ao V2 mean: 193.0 cm/sec LV V1 max P.1 mmHg Ao max P.6 mmHg LV V1 VTI: 21.5 cm Ao mean P.0 mmHg PATO(I,D): 2.2 cm2 Ao V2 VTI: 40.3 cm PATO(V,D): 2.0 cm2 sev ratio: 0.53 PATO indexed to BSA (cm^2/m^2): 0.94 SV(LVOT): 89.3 ml AV VR_phl: 0.49 PATO(VTI)/BSA_phl: 0.96 Reading Physician:05:21 PM
== END ==
PROVIDERS: Family Provider Internal Medicine; PCP Internal Medicine; Referring Provider Internal Medicine Cardiovascular Disease; Visit Provider Internal Medicine Cardiovascular Disease
DX: Q23.1 Congenital insufficiency of aortic valve (principal); I51.7 Cardiomegaly; I48.91 Unspecified atrial fibrillation; R00.1 Bradycardia, unspecified
CPT/HCPCS: 93306

== ENCOUNTER → 2022-04-13 09:12 | Outpatient (CLI) | payer MEDICARE, SELFPAY ==
[2022-04-13 09:34] LABS: Add Manual Diff / Slide Review NO; Basophils Absolute Auto 0 /uL (0-100); Basophils Percent Auto 0.4 % (0-2); Eosinophils Absolute Auto 0 /uL (0-450); Eosinophils Percent Auto 0.4 % (2-4); Hematocrit 37.1 % (41-53); Hemoglobin 13.1 g/dL (13.5-17.5); Lymphocytes Absolute Auto 2300 /uL (1100-4500); Lymphocytes Percent Auto 26.6 % (25-40); Mean Corpuscular HGB Conc 35.2 % (30-36); Mean Corpuscular Hemoglobin 33.1 PG (26-34); Monocytes Absolute Auto 500 /uL (0-900); Monocytes Percent Auto 5.8 % (3-14); Neutrophils Absolute Auto 5700 /uL (1500-7000); Neutrophils Percent Auto 66.8 % (50-75); Platelet Count 172 X10^3/uL (150-400); Red Blood Cell Count 3.95 X10^6/uL (4.5-5.9); Red Cell Distribution Width 13.5 % (11.6-14.8); White Blood Cell Count 8.6 X10^3/uL (4.5-11.0)
[2022-04-13 09:43] LABS: INR 1.7 (0.9-1.3); Prothrombin Time 19.6 SECONDS (10.1-12.7)
[2022-04-13 10:14] LABS: Alanine Aminotransferase 35 IU/L (<50); Albumin Globulin Ratio 1.1 (1.0-2.8); Alkaline Phosphatase 48 U/L (38-126); Aspartate Aminotransferase 25 IU/L (17-59); BUN Creatinine Ratio 27.3 (6-22); Bilirubin Total 2.4 mg/dL (0.2-1.3); Blood Urea Nitrogen 24 mg/dL (9-20); Calcium 8.4 mg/dL (8.4-10.2); Carbon Dioxide 25 mmol/L (22-32); Chloride 104 mmol/L (98-107); Estimated Glomerular Filt Rate > 60 mL/min (>60); Globulin 3.8 g/dL (1.7-4.1); Glucose 146 mg/dL (80-110); HEMOLYSIS < 15 (0-50); Magnesium 1.9 mg/dL (1.6-2.3); Potassium 3.6 mmol/L (3.4-5.1); Sodium 138 mmol/L (137-145); Total Protein 7.8 g/dL (6.3-8.2)
[2022-04-13 10:41] LABS: Thyroid Stimulating Hormone 2.79 uIU/mL (0.47-4.68)
== END ==
PROVIDERS: Family Provider Internal Medicine; PCP Internal Medicine; Referring Provider Internal Medicine Cardiovascular Disease; Visit Provider Internal Medicine Cardiovascular Disease
DX: I10 Essential (primary) hypertension (principal); I48.19 Other persistent atrial fibrillation
CPT/HCPCS: 36415; 80053; 83735; 84443; 85025; 85610

== ENCOUNTER → 2022-07-19 10:41 | Outpatient (CLI) | payer MEDICARE, SELFPAY ==
[2022-07-19 11:04] LABS: Add Manual Diff / Slide Review NO; Basophils Absolute Auto 0 /uL (0-100); Basophils Percent Auto 0.3 % (0-2); Eosinophils Absolute Auto 0 /uL (0-450); Eosinophils Percent Auto 0.5 % (2-4); Hematocrit 40.1 % (41-53); Hemoglobin 13.7 g/dL (13.5-17.5); Lymphocytes Absolute Auto 2500 /uL (1100-4500); Lymphocytes Percent Auto 33.2 % (25-40); Mean Corpuscular HGB Conc 34.3 % (30-36); Mean Corpuscular Hemoglobin 32.6 PG (26-34); Monocytes Absolute Auto 400 /uL (0-900); Monocytes Percent Auto 5.2 % (3-14); Neutrophils Absolute Auto 4600 /uL (1500-7000); Neutrophils Percent Auto 60.8 % (50-75); Platelet Count 169 X10^3/uL (150-400); Red Blood Cell Count 4.22 X10^6/uL (4.5-5.9); White Blood Cell Count 7.6 X10^3/uL (4.5-11.0)
[2022-07-19 11:26] LABS: BUN Creatinine Ratio 19.6 (6-22); Blood Urea Nitrogen 18 mg/dL (9-20); Calcium 9.1 mg/dL (8.4-10.2); Carbon Dioxide 27 mmol/L (22-32); Chloride 103 mmol/L (98-107); Estimated Glomerular Filt Rate > 60 mL/min (>60); Glucose 129 mg/dL (80-110); HEMOLYSIS < 15 (0-50); Potassium 4.4 mmol/L (3.4-5.1); Sodium 140 mmol/L (137-145)
== END ==
PROVIDERS: Family Provider Internal Medicine; PCP Internal Medicine; Referring Provider Physician Assistant; Visit Provider Physician Assistant
DX: I48.91 Unspecified atrial fibrillation (principal); I48.19 Other persistent atrial fibrillation
CPT/HCPCS: 36415; 80048; 85025

== ENCOUNTER → 2022-09-15 14:06 | Outpatient (CLI) | payer MEDICARE, SELFPAY ==
[2022-09-15 15:34] LABS: Alanine Aminotransferase 47 IU/L (<50); Albumin 4.1 g/dL (3.5-5.0); Albumin Globulin Ratio 1.1 (1.0-2.8); Alkaline Phosphatase 62 U/L (38-126); Aspartate Aminotransferase 38 IU/L (17-59); BUN Creatinine Ratio 21.1 (6-22); Bilirubin Total 0.9 mg/dL (0.2-1.3); Blood Urea Nitrogen 16 mg/dL (9-20); Calcium 8.9 mg/dL (8.4-10.2); Carbon Dioxide 27 mmol/L (22-32); Chloride 104 mmol/L (98-107); Estimated Glomerular Filt Rate > 60 mL/min (>60); Globulin 3.9 g/dL (1.7-4.1); Glucose 94 mg/dL (80-110); HEMOLYSIS < 15 (0-50); Potassium 3.9 mmol/L (3.4-5.1); Sodium 140 mmol/L (137-145)
== END ==
PROVIDERS: Family Provider Internal Medicine; PCP Internal Medicine; Referring Provider Internal Medicine Cardiovascular Disease; Visit Provider Internal Medicine Cardiovascular Disease
DX: I10 Essential (primary) hypertension (principal)
CPT/HCPCS: 36415; 80053

== ENCOUNTER → 2022-10-11 09:55 | Outpatient (CLI) | payer MEDICARE, SELFPAY ==
[2022-10-11 11:16] LABS: Add Manual Diff / Slide Review NO; Basophils Absolute Auto 0 /uL (0-100); Basophils Percent Auto 0.1 % (0-2); Eosinophils Absolute Auto 0 /uL (0-450); Eosinophils Percent Auto 0.7 % (2-4); Hematocrit 39.5 % (41-53); Hemoglobin 13.5 g/dL (13.5-17.5); Lymphocytes Absolute Auto 2800 /uL (1100-4500); Lymphocytes Percent Auto 39.2 % (25-40); Mean Corpuscular HGB Conc 34.3 % (30-36); Mean Corpuscular Hemoglobin 32.8 PG (26-34); Mean Corpuscular Volume 95.6 fL (80-100); Monocytes Absolute Auto 300 /uL (0-900); Monocytes Percent Auto 4.6 % (3-14); Neutrophils Absolute Auto 4000 /uL (1500-7000); Neutrophils Percent Auto 55.4 % (50-75); Platelet Count 163 X10^3/uL (150-400); Red Blood Cell Count 4.13 X10^6/uL (4.5-5.9); Red Cell Distribution Width 13.7 % (11.6-14.8); White Blood Cell Count 7.1 X10^3/uL (4.5-11.0)
[2022-10-11 11:29] LABS: BUN Creatinine Ratio 19.3 (6-22); Blood Urea Nitrogen 17 mg/dL (9-20); Calcium 8.6 mg/dL (8.4-10.2); Carbon Dioxide 28 mmol/L (22-32); Chloride 104 mmol/L (98-107); Cholesterol 144 mg/dL (140-199); Estimated Glomerular Filt Rate > 60 mL/min (>60); Glucose 124 mg/dL (80-110); HDL Cholesterol 27 mg/dL (40-60); HEMOLYSIS < 15 (0-50); LDL Cholesterol Calculated 83 mg/dL (<100); Potassium 4.1 mmol/L (3.4-5.1); Sodium 139 mmol/L (137-145); Triglycerides 169 mg/dL (35-150)
== END ==
PROVIDERS: Family Provider Internal Medicine; PCP Internal Medicine; Referring Provider Physician Assistant; Visit Provider Physician Assistant
DX: I48.11 Longstanding persistent atrial fibrillation (principal); E78.5 Hyperlipidemia, unspecified
CPT/HCPCS: 36415; 80048; 80061; 85025

== ENCOUNTER → 2022-11-12 08:46 | Outpatient (CLI) | payer MEDICARE, SELFPAY ==
[2022-11-12 09:17] LABS: Add Manual Diff / Slide Review NO; Basophils Absolute Auto 0 /uL (0-100); Basophils Percent Auto 0.3 % (0-2); Eosinophils Absolute Auto 100 /uL (0-450); Eosinophils Percent Auto 1.5 % (2-4); Hematocrit 37.4 % (41-53); Lymphocytes Absolute Auto 2600 /uL (1100-4500); Lymphocytes Percent Auto 42.8 % (25-40); Mean Corpuscular HGB Conc 34.8 % (30-36); Mean Corpuscular Hemoglobin 33.5 PG (26-34); Mean Corpuscular Volume 96.1 fL (80-100); Monocytes Absolute Auto 300 /uL (0-900); Monocytes Percent Auto 5.4 % (3-14); Neutrophils Absolute Auto 3000 /uL (1500-7000); Platelet Count 151 X10^3/uL (150-400); Red Blood Cell Count 3.89 X10^6/uL (4.5-5.9); Red Cell Distribution Width 14.3 % (11.6-14.8)
[2022-11-12 09:29] LABS: BUN Creatinine Ratio 16.3 (6-22); Blood Urea Nitrogen 16 mg/dL (9-20); Calcium 8.6 mg/dL (8.4-10.2); Carbon Dioxide 26 mmol/L (22-32); Chloride 106 mmol/L (98-107); Estimated Glomerular Filt Rate > 60 mL/min (>60); Glucose 134 mg/dL (80-110); HEMOLYSIS < 15 (0-50); Potassium 4.1 mmol/L (3.4-5.1); Sodium 140 mmol/L (137-145)
== END ==
PROVIDERS: Family Provider Internal Medicine; PCP Internal Medicine; Referring Provider Internal Medicine Cardiovascular Disease; Visit Provider Internal Medicine Cardiovascular Disease
DX: I48.11 Longstanding persistent atrial fibrillation (principal)
CPT/HCPCS: 36415; 80048; 85025

== ENCOUNTER → 2023-01-03 07:49 | Outpatient (CLI) | payer MEDICARE, SELFPAY ==
[2023-01-03 09:32] LABS: Alanine Aminotransferase 63 IU/L (<50); Albumin 3.9 g/dL (3.5-5.0); Alkaline Phosphatase 55 U/L (38-126); Aspartate Aminotransferase 46 IU/L (17-59); BUN Creatinine Ratio 14.9 (6-22); Bilirubin Total 1.1 mg/dL (0.2-1.3); Blood Urea Nitrogen 13 mg/dL (9-20); Calcium 8.7 mg/dL (8.4-10.2); Carbon Dioxide 27 mmol/L (22-32); Chloride 105 mmol/L (98-107); Cholesterol 154 mg/dL (140-199); Estimated Glomerular Filt Rate > 60 mL/min (>60); Globulin 3.8 g/dL (1.7-4.1); Glucose 127 mg/dL (80-110); HDL Cholesterol 31 mg/dL (40-60); HEMOLYSIS < 15 (0-50); LDL Cholesterol Calculated 99 mg/dL (<100); Potassium 3.9 mmol/L (3.4-5.1); Sodium 139 mmol/L (137-145); Total Protein 7.7 g/dL (6.3-8.2); Triglycerides 122 mg/dL (35-150)
[2023-01-03 10:01] LABS: Thyroid Stimulating Hormone 3.63 uIU/mL (0.47-4.68)
== END ==
PROVIDERS: Family Provider Internal Medicine; PCP Internal Medicine; Referring Provider Internal Medicine Cardiovascular Disease; Visit Provider Internal Medicine Cardiovascular Disease
DX: E78.5 Hyperlipidemia, unspecified (principal); Z79.899 Other long term (current) drug therapy
CPT/HCPCS: 36415; 80053; 80061; 84443

== ENCOUNTER → 2023-04-15 10:55 | Outpatient (CLI) | payer MEDICARE, SELFPAY ==
[2023-04-15 12:17] LABS: Alanine Aminotransferase 46 IU/L (<50); Albumin 4.1 g/dL (3.5-5.0); Albumin Globulin Ratio 1.2 (1.0-2.8); Alkaline Phosphatase 57 U/L (38-126); Aspartate Aminotransferase 33 IU/L (17-59); Bilirubin Total 1.2 mg/dL (0.2-1.3); Bilirubin Unconjugated 1.1 mg/dL (0.0-1.1); Globulin 3.4 g/dL (1.7-4.1); HEMOLYSIS < 15 (0-50); Total Protein 7.5 g/dL (6.3-8.2)
[2023-04-15 12:36] LABS: Free T4, Direct Thyroxine 1.27 ng/dL (0.78-2.19)
[2023-04-15 12:50] LABS: Thyroid Stimulating Hormone 1.87 uIU/mL (0.47-4.68)
== END ==
PROVIDERS: Family Provider Internal Medicine; PCP Internal Medicine; Referring Provider Internal Medicine Cardiovascular Disease; Visit Provider Internal Medicine Cardiovascular Disease
DX: E78.5 Hyperlipidemia, unspecified (principal); R17 Unspecified jaundice; R74.8 Abnormal levels of other serum enzymes; I10 Essential (primary) hypertension
CPT/HCPCS: 36415; 80076; 84439; 84443

== ENCOUNTER → 2023-06-24 11:23 | Outpatient (CLI) | payer MEDICARE, SELFPAY ==
[2023-06-24 13:00] LABS: Add Manual Diff / Slide Review NO; Basophils Absolute Auto 0 /uL (0-100); Basophils Percent Auto 0.4 % (0-2); Eosinophils Absolute Auto 0 /uL (0-450); Eosinophils Percent Auto 0.8 % (2-4); Hematocrit 36.8 % (41-53); Hemoglobin 12.8 g/dL (13.5-17.5); Lymphocytes Absolute Auto 2400 /uL (1100-4500); Lymphocytes Percent Auto 38.3 % (25-40); Mean Corpuscular HGB Conc 34.9 % (30-36); Mean Corpuscular Hemoglobin 33.4 PG (26-34); Mean Corpuscular Volume 95.7 fL (80-100); Monocytes Absolute Auto 300 /uL (0-900); Monocytes Percent Auto 5.2 % (3-14); Neutrophils Absolute Auto 3400 /uL (1500-7000); Neutrophils Percent Auto 55.3 % (50-75); Platelet Count 150 X10^3/uL (150-400); Red Blood Cell Count 3.84 X10^6/uL (4.5-5.9); Red Cell Distribution Width 13.9 % (11.6-14.8); White Blood Cell Count 6.2 X10^3/uL (4.5-11.0)
[2023-06-24 13:41] LABS: BUN Creatinine Ratio 22.5 (6-22); Blood Urea Nitrogen 18 mg/dL (9-20); Calcium 9.6 mg/dL (8.4-10.2); Carbon Dioxide 27 mmol/L (22-32); Chloride 103 mmol/L (98-107); Estimated Glomerular Filt Rate > 60 mL/min (>60); Glucose 147 mg/dL (80-110); HEMOLYSIS < 15 (0-50); Potassium 3.9 mmol/L (3.4-5.1); Sodium 138 mmol/L (137-145)
== END ==
PROVIDERS: Internal Medicine Cardiovascular Disease; Family Provider Internal Medicine; PCP Internal Medicine; Referring Provider Physician Assistant; Visit Provider Physician Assistant
DX: I48.91 Unspecified atrial fibrillation (principal); I48.11 Longstanding persistent atrial fibrillation; I48.19 Other persistent atrial fibrillation
CPT/HCPCS: 36415; 80048; 85025

== ENCOUNTER → 2023-08-12 15:02 | Outpatient (CLI) | payer MEDICARE, SELFPAY ==
[2023-08-12 17:11] LABS: Magnesium 1.8 mg/dL (1.6-2.3)
== END ==
PROVIDERS: Family Provider Internal Medicine; PCP Internal Medicine; Referring Provider Physician Assistant Medical; Visit Provider Physician Assistant Medical
DX: I48.0 Paroxysmal atrial fibrillation (principal)
CPT/HCPCS: 36415; 83735

== ENCOUNTER → 2023-10-03 13:33 | Outpatient (CLI) | payer MEDICARE, SELFPAY ==
--- NOTE | 2023-10-03 13:34 | DI.ECHO.S_ITS ---
[place] +---------+ [facility] +---------+ : : [address] : : : : [id number] : : : : Phone: [phone]+ Echocardiogram Report + + :Name: NIKKI WILKINSON V Study Date: 10/03/2023 Height: 28.5 in: :[facility] ReadingLocation: Weight: 262 lb : : Gender: Male BSA: 1.2 m2 : :: 1945 Age: 78 yrs BP: 160/76 mmHg: :Reason For Study: Atrial fibrillation - paroxysmal : : Performed By: Sujey Zee : :Referring: JAMIE HAYNES : + + Interpretation Summary Sinus bradycardia; heart rate is 47-51 bpm. Uncontrolled hypertension. Normal LV size; borderline LVH; normal wall motion and LV systolic function. EF is 60-65%. Severe LA enlargement; moderate RA enlargement; mild RV enlargement. Aortic valve leaflets are not well seen. Dr. Haynes described it as bicuspid on prior echo 04/12/2022. There is moderate aortic stenosis with peak velocity of 3 m/sec and mean gradient of 22 mm Hg. Mildly dilated aortic root and arch. Compared to prior study 04/12/2022, aortic stenosis got a little bit worse. Afib is no longer seen. Bradycardia is new. Atrial dilation is newly described. Procedure: A two-dimensional transthoracic echocardiogram with color flow and Doppler was performed. The study quality was technically adequate. Comparison is made with the echocardiogram of 04-12-22. The heart rate ranged between 49-51 bpm during the study. Left Ventricle: The left ventricle is normal in size. Left ventricular wall thickness is at the upper limits of normal. The ejection fraction is estimated to be 60-65%. Diastolic function could not be accurately assessed due to confounding valvular disease. Right Ventricle: The right ventricle is mildly dilated. Right ventricular systolic function is moderately reduced. Atria: The left atrium is severely dilated. The right atrium is moderately dilated. The interatrial septum grossly appears intact with no obvious evidence for an atrial septal defect. Mitral Valve: The mitral valve leaflets appear mildly thickened, but open well. There is no mitral regurgitation. Aortic Valve: The aortic valve is moderately calcified. The calculated aortic valve area is 1.5 cm2. The aortic valve area is 2,4 centimeters squared by planimetry. The peak aortic velocity is 3.0 m/sec. The peak aortic velocity on the previous exam was 2.8 m/sec. The aortic valve mean gradient is 22 mmHg. There is no aortic regurgitation. Tricuspid Valve: The tricuspid valve leaflets are thickened and/or calcified, but open well. There is mild tricuspid regurgitation. The right ventricular systolic pressure is estimated to be at least 37 mmHg based on an estimated right atrial pressure of 3 mm Hg. Pulmonic Valve: There is mild thickening of the pulmonic valve. There is mild to moderate pulmonic regurgitation. Great Vessels: The aortic root is mildly dilated. The ascending aorta is at the upper limits of normal in size. The aortic arch is mildly enlarged. The IVC is of normal diameter and collapses greater than 50% with a sniff. This suggests a low right atrial pressure of 3 mm Hg. Pericardium/ Pleura There is no pericardial effusion. There is no pleural effusion. MMode/2D Measurements & Calculations LVIDd: 5.0 cm LVOT diam: 2.4 cm LVIDs: 3.0 cm Ao root diam: 4.0 cm FS: 40.8 % asc Aorta Diam: 3.6 cm EPSS: 0.57 cm Ao Arch Diam (Prox Trans): 3.5 cm IVSd: 1.2 cm LVPWd: 0.97 cm LV gardner. diameter/BSA (cm/m^2): 4.1 LV sys. diameter/BSA (cm/m^2): 2.5 LA A2 area: 25.4 cm2 RA long axis: 6.4 cm LA A4 area: 28.2 cm2 RA area: 20.7 cm2 LA length (vol): 6.6 cm RA vol: 56.6 ml LA vol: 91.9 ml RA : 46.5 ml/m2 LA vol index: 75.6 ml/m2 IVC diam: 1.9 cm RVD1 (basal): 4.0 cm TAPSE: 2.4 cm Doppler Measurements & Calculations Ao V2 max: 304.3 cm/sec LVOT Max Oliver: 98.0 cm/sec Ao V2 mean: 217.6 cm/sec LV V1 max P.8 mmHg Ao max P.1 mmHg LV V1 VTI: 28.3 cm Ao mean P.0 mmHg PATO(I,D): 1.6 cm2 Ao V2 VTI: 82.6 cm PATO(V,D): 1.5 cm2 sev ratio: 0.34 PATO indexed to BSA (cm^2/m^2): 1.3 MV E max oliver: 81.3 cm/sec TR max oliver: 291.6 cm/sec MV A max oliver: 73.9 cm/sec TR max P.0 mmHg MV E/A: 1.1 PA V2 max: 92.4 cm/sec Med Peak E' Oliver: 4.8 cm/sec PA V2 mean: 63.0 cm/sec E/E' med: 16.8 PA mean P.9 mmHg Lat Peak E' Oliver: 8.4 cm/sec PA pr(Accel): 7.1 mmHg E/E' lat: 9.7 E/e' average: 13.3 MV dec time: 0.26 sec SV(LVOT): 131.7 ml Electronically signed by: Uzma Nunes M.D. on Reading Physician:10/05/2023 03:55 AM
== END ==
LOC: ECHO 13:34
PROVIDERS: Family Provider Internal Medicine; PCP Internal Medicine; Referring Provider Internal Medicine Cardiovascular Disease; Visit Provider Internal Medicine Cardiovascular Disease
DX: I07.0 Rheumatic tricuspid stenosis (principal); I37.1 Nonrheumatic pulmonary valve insufficiency; I48.0 Paroxysmal atrial fibrillation; I77.810 Thoracic aortic ectasia
CPT/HCPCS: 93306

== ENCOUNTER → 2023-11-10 10:06 | Outpatient (CLI) | payer MEDICARE, SELFPAY ==
[2023-11-10 11:56] LABS: Add Manual Diff / Slide Review NO; Basophils Absolute Auto 0 /uL (0-100); Basophils Percent Auto 0.2 % (0-2); Eosinophils Absolute Auto 100 /uL (0-450); Eosinophils Percent Auto 0.9 % (2-4); Hematocrit 35.9 % (41-53); Hemoglobin 12.5 g/dL (13.5-17.5); Lymphocytes Absolute Auto 2600 /uL (1100-4500); Lymphocytes Percent Auto 38.6 % (25-40); Mean Corpuscular Hemoglobin 33.4 PG (26-34); Mean Corpuscular Volume 95.7 fL (80-100); Monocytes Absolute Auto 400 /uL (0-900); Monocytes Percent Auto 5.9 % (3-14); Neutrophils Absolute Auto 3700 /uL (1500-7000); Neutrophils Percent Auto 54.4 % (50-75); Platelet Count 152 X10^3/uL (150-400); Red Blood Cell Count 3.75 X10^6/uL (4.5-5.9); Red Cell Distribution Width 13.8 % (11.6-14.8); White Blood Cell Count 6.7 X10^3/uL (4.5-11.0)
[2023-11-10 12:45] LABS: Alanine Aminotransferase 58 IU/L (<50); Albumin 4.3 g/dL (3.5-5.0); Albumin Globulin Ratio 1.2 (1.0-2.8); Alkaline Phosphatase 58 U/L (38-126); Aspartate Aminotransferase 45 IU/L (17-59); BUN Creatinine Ratio 20.8 (6-22); Bilirubin Total 1.5 mg/dL (0.2-1.3); Blood Urea Nitrogen 15 mg/dL (9-20); Carbon Dioxide 28 mmol/L (22-32); Chloride 106 mmol/L (98-107); Cholesterol 128 mg/dL (140-199); Estimated Glomerular Filt Rate > 60 mL/min (>60); Globulin 3.7 g/dL (1.7-4.1); Glucose 132 mg/dL (80-110); HDL Cholesterol 31 mg/dL (40-60); HEMOLYSIS < 15 (0-50); LDL Cholesterol Calculated 63 mg/dL (<100); Potassium 4.3 mmol/L (3.4-5.1); Sodium 138 mmol/L (137-145); Triglycerides 172 mg/dL (35-150)
== END ==
LOC: LAB 10:07
PROVIDERS: Family Provider Internal Medicine; PCP Internal Medicine; Referring Provider Internal Medicine; Visit Provider Internal Medicine
DX: R73.02 Impaired glucose tolerance (oral) (principal); E78.5 Hyperlipidemia, unspecified; I48.0 Paroxysmal atrial fibrillation; I10 Essential (primary) hypertension
CPT/HCPCS: 36415; 80053; 80061; 85025

== ENCOUNTER → 2024-04-12 10:05 | Outpatient (CLI) | payer MEDICARE, SELFPAY ==
[2024-04-12 11:15] LABS: Blood Urea Nitrogen 16 mg/dL (9-20); Carbon Dioxide 27 mmol/L (22-32); Chloride 102 mmol/L (98-107); Cholesterol 129 mg/dL (140-199); Estimated Glomerular Filt Rate > 60 mL/min (>60); Glucose 139 mg/dL (80-110); HDL Cholesterol 28 mg/dL (40-60); HEMOLYSIS < 15 (0-50); LDL Cholesterol Calculated 69 mg/dL (<100); Potassium 4.2 mmol/L (3.4-5.1); Sodium 136 mmol/L (137-145); Triglycerides 159 mg/dL (35-150)
== END ==
LOC: LAB 10:06
PROVIDERS: Family Provider Internal Medicine; PCP Internal Medicine; Referring Provider Internal Medicine Cardiovascular Disease; Visit Provider Internal Medicine Cardiovascular Disease
DX: I10 Essential (primary) hypertension (principal); I48.91 Unspecified atrial fibrillation; Z51.81 Encounter for therapeutic drug level monitoring; Z79.899 Other long term (current) drug therapy; Q23.1 Congenital insufficiency of aortic valve; E78.5 Hyperlipidemia, unspecified; I35.0 Nonrheumatic aortic (valve) stenosis; Z86.79 Personal history of other diseases of the circulatory system; Z98.890 Other specified postprocedural states
CPT/HCPCS: 36415; 80048; 80061

== ENCOUNTER → 2024-10-05 09:40 | Outpatient (CLI) | payer MEDICARE, SELFPAY ==
[2024-10-05 11:15] LABS: BUN Creatinine Ratio 16.3 (6-22); Blood Urea Nitrogen 13 mg/dL (9-20); Carbon Dioxide 27 mmol/L (22-32); Chloride 103 mmol/L (98-107); Estimated Glomerular Filt Rate > 60 mL/min (>60); Glucose 155 mg/dL (80-110); HEMOLYSIS < 15 (0-50); Potassium 3.9 mmol/L (3.4-5.1); Sodium 138 mmol/L (137-145)
== END ==
PROVIDERS: Family Provider Internal Medicine; PCP Internal Medicine; Referring Provider Internal Medicine Cardiovascular Disease; Visit Provider Internal Medicine Cardiovascular Disease
DX: I10 Essential (primary) hypertension (principal)
CPT/HCPCS: 36415; 80048

== ENCOUNTER → 2024-10-29 09:24 | Outpatient (CLI) | payer MEDICARE, SELFPAY ==
[2024-10-29 10:47] LABS: Hemoglobin A1C% w Est Avg Glu 5.9 % (4.0-6.0)
[2024-10-29 11:07] LABS: Alanine Aminotransferase 59 IU/L (<50); Albumin 4.4 g/dL (3.5-5.0); Albumin Globulin Ratio 1.1 (1.0-2.8); Alkaline Phosphatase 56 U/L (38-126); Aspartate Aminotransferase 59 IU/L (17-59); BUN Creatinine Ratio 20.7 (6-22); Bilirubin Total 1.8 mg/dL (0.2-1.3); Blood Urea Nitrogen 19 mg/dL (9-20); Calcium 9.3 mg/dL (8.4-10.2); Carbon Dioxide 25 mmol/L (22-32); Chloride 103 mmol/L (98-107); Cholesterol 144 mg/dL (140-199); Estimated Glomerular Filt Rate > 60 mL/min (>60); Glucose 157 mg/dL (80-110); HDL Cholesterol 29 mg/dL (40-60); HEMOLYSIS < 15 (0-50); LDL Cholesterol Calculated 74 mg/dL (<100); Potassium 4.2 mmol/L (3.4-5.1); Sodium 137 mmol/L (137-145); Total Protein 8.4 g/dL (6.3-8.2); Triglycerides 207 mg/dL (35-150)
== END ==
PROVIDERS: Family Provider Internal Medicine; PCP Internal Medicine; Referring Provider Internal Medicine; Visit Provider Internal Medicine
DX: R73.01 Impaired fasting glucose (principal); E78.2 Mixed hyperlipidemia; R73.02 Impaired glucose tolerance (oral); I10 Essential (primary) hypertension
CPT/HCPCS: 36415; 80053; 80061; 83036

== ENCOUNTER → 2025-03-06 10:09 | Outpatient (CLI) | payer MEDICARE, SELFPAY ==
--- NOTE | 2025-03-06 10:10 | DI.ECHO.S_ITS ---
[facility] +---------+ [facility] : : [address] : [address] : : [id number] : : Phone: [phone] Echocardiogram Report + + :Name: NIKKI WILKINSON V Study Date: 03/06/2025 Height: 72 in : :Hospital ReadingLocation: Weight: 255 lb : : Gender: Male BSA: 2.4 m2 : :: 1945 Age: 79 yrs BP: 166/80 mmHg: :Reason For Study: NONRHEUMATIC AORTIC VALVE STENOSIS : :Ordering Physician: [place]ALLAS, : :JAMIE Performed By: Kishore Zhang : :Referring: JAMIE HAYNES : + + Interpretation Summary The patient was in sinus bradycardia with heart rates between 50-56 bpm during the exam. The left ventricle is normal in size. Left ventricular ejection fraction is estimated to be 70 +/- 5%. The right ventricle is mildly dilated. The right ventricular systolic function is normal. Right ventricular systolic function has increased since previous exam. AV described as bicuspid on prior echo - 04/12/22. In short axis view, not well-visualized. The aortic valve is moderately calcified. The peak aortic velocity is 4.7 m/sec. The aortic valve mean gradient is 53.7 mmHg. The calculated aortic valve area is 0.9 cm2. The peak aortic velocity on the previous exam was 3 m/sec. Compared to the prior echo study, there has been an increase in the severity of aortic stenosis. There is mild tricuspid regurgitation. The right ventricular systolic pressure is estimated to be at least 48 mmHg based on an estimated right atrial pressure of 8 mm Hg. Previously 37 mmHg Procedure: A two-dimensional transthoracic echocardiogram with color flow and Doppler was performed. The study quality was technically good. Comparison is made with the echocardiogram of 10/03/2023. The patient was in normal sinus rhythm during the exam. The patient was in sinus bradycardia with heart rates between 50-56 bpm during the exam. Left Ventricle: The left ventricle is normal in size. Left ventricular wall thickness is mild-moderately increased. There is no ventricular septal defect visualized. Left ventricular ejection fraction is estimated to be 70 +/- 5%. There are no focal wall motion abnormalities. MV E/A: 0.91 Med Peak E' Oliver: 4.9 cm/sec E/E' med: 16.2. Right Ventricle: The right ventricle is mildly dilated. The right ventricular systolic function is normal. Right ventricular systolic function has increased since previous exam. Atria: The left atrium is moderately dilated. The left atrium has mildly decreased in size since the prior echo exam. The right atrium is mildly dilated. There is no Doppler evidence for an interatrial shunt. Mitral Valve: There is mild mitral annular calcification. The mitral valve leaflets are mildly calcified. There is trace mitral regurgitation. Aortic Valve: The aortic valve is moderately calcified. AV described as bicuspid on prior echo - 04/12/22. It was not well-visualized. There is severe aortic stenosis. The peak aortic velocity is 4.7 m/sec. The aortic valve mean gradient is 53.7 mmHg. The calculated aortic valve area is 0.9 cm2. The peak aortic velocity on the previous exam was 3 m/sec. Compared to the prior echo study, there has been an increase in the severity of aortic stenosis. No aortic regurgitation is present. Tricuspid Valve: The tricuspid valve leaflets are thin and pliable. There is mild tricuspid regurgitation. The right ventricular systolic pressure is estimated to be at least 48 mmHg based on an estimated right atrial pressure of 8 mm Hg. Pulmonic Valve: The pulmonic valve is not well visualized. There is trace pulmonic regurgitation. Great Vessels: The aortic root is mildly dilated. The ascending aorta is mildly enlarged. The aortic arch is mild-moderately enlarged. The pulmonary artery is normal size. The IVC is dilated (diameter is greater than 2.1 cm) yet it collapses greater than 50% with a sniff. This suggests a right atrial pressure of 8 mm Hg. Pericardium/ Pleura There is no pericardial effusion. There is no pleural effusion. MMode/2D Measurements & Calculations LVIDd: 4.4 cm LVOT diam: 2.2 cm LVIDs: 2.6 cm Ao root diam: 4.2 cm FS: 39.6 % asc Aorta Diam: 4.0 cm EPSS: 0.55 cm Ao Arch Diam (Prox Trans): 3.5 cm IVSd: 1.4 cm LVPWd: 1.3 cm LV gardner. diameter/BSA (cm/m^2): 1.9 LV sys. diameter/BSA (cm/m^2): 1.1 LA A2 area: 29.2 cm2 RA long axis: 5.9 cm LA A4 area: 27.6 cm2 RA area: 20.0 cm2 LA length (vol): 6.8 cm RA vol: 57.0 ml LA vol: 100.9 ml RA : 24.1 ml/m2 LA vol index: 42.7 ml/m2 IVC diam: 2.2 cm RVD1 (basal): 4.6 cm RVD2 (mid): 3.6 cm TAPSE: 2.7 cm Doppler Measurements & Calculations Ao V2 max: 472.0 cm/sec LVOT Max Oliver: 126.0 cm/sec Ao V2 mean: 346.4 cm/sec LV V1 max P.3 mmHg Ao max P.1 mmHg LV V1 VTI: 36.9 cm Ao mean P.7 mmHg PATO(I,D): 1.1 cm2 Ao V2 VTI: 121.3 cm PATO(V,D): 0.97 cm2 sev ratio: 0.30 PATO indexed to BSA (cm^2/m^2): 0.47 MV E max oliver: 78.8 cm/sec TR max oliver: 314.6 cm/sec MV A max oliver: 86.3 cm/sec TR max P.6 mmHg MV E/A: 0.91 PA V2 max: 131.7 cm/sec Med Peak E' Oliver: 4.9 cm/sec PA V2 mean: 99.4 cm/sec E/E' med: 16.2 PA mean P.3 mmHg Lat Peak E' Oliver: 6.7 cm/sec PA pr(Accel): 36.2 mmHg E/E' lat: 11.8 E/e' average: 14.0 MV dec time: 0.32 sec SV(LVOT): 134.1 ml Reading Physician:12:02 PM
== END ==
LOC: ECHO 10:10
PROVIDERS: Family Provider Internal Medicine; PCP Internal Medicine; Referring Provider Internal Medicine Cardiovascular Disease; Visit Provider Internal Medicine Cardiovascular Disease
DX: I35.0 Nonrheumatic aortic (valve) stenosis (principal); I10 Essential (primary) hypertension; R00.1 Bradycardia, unspecified; I51.7 Cardiomegaly; I70.0 Atherosclerosis of aorta; I07.1 Rheumatic tricuspid insufficiency
CPT/HCPCS: 36415; 80048; 93306

== ENCOUNTER → 2025-03-06 10:57 | Outpatient (CLI) | payer MEDICARE, SELFPAY ==
[2025-03-06 12:43] LABS: Blood Urea Nitrogen 17 mg/dL (9-20); Calcium 8.9 mg/dL (8.4-10.2); Carbon Dioxide 25 mmol/L (22-32); Chloride 104 mmol/L (98-107); Estimated Glomerular Filt Rate > 60 mL/min (>60); Glucose 159 mg/dL (70-99); HEMOLYSIS < 15 (0-50); Potassium 4.2 mmol/L (3.4-5.1); Sodium 139 mmol/L (137-145)
== END ==
PROVIDERS: Family Provider Internal Medicine; PCP Internal Medicine; Referring Provider Internal Medicine Cardiovascular Disease; Visit Provider Internal Medicine Cardiovascular Disease
DX: I10 Essential (primary) hypertension (principal)
CPT/HCPCS: 36415; 80048

== ENCOUNTER → 2025-03-30 09:12 | Outpatient (CLI) | payer MEDICARE, SELFPAY ==
[2025-03-30 09:58] LABS: Hematocrit 35.5 % (41-53); Hemoglobin 12.8 g/dL (13.5-17.5); Mean Corpuscular HGB Conc 36.0 % (30-36); Mean Corpuscular Hemoglobin 34.0 PG (26-34); Mean Corpuscular Volume 94.3 fL (80-100); Platelet Count 136 X10^3/uL (150-400)
[2025-03-30 10:26] LABS: Blood Urea Nitrogen 15 mg/dL (9-20); Calcium 8.7 mg/dL (8.4-10.2); Carbon Dioxide 25 mmol/L (22-32); Chloride 103 mmol/L (98-107); Estimated Glomerular Filt Rate > 60 mL/min (>60); Glucose 156 mg/dL (70-99); HEMOLYSIS < 15 (0-50); Potassium 4.0 mmol/L (3.4-5.1); Sodium 138 mmol/L (137-145)
== END ==
PROVIDERS: Family Provider Internal Medicine; PCP Internal Medicine; Referring Provider Internal Medicine; Visit Provider Internal Medicine
DX: I35.0 Nonrheumatic aortic (valve) stenosis (principal)
CPT/HCPCS: 36415; 80048; 85027